=== PATIENT | female | born 1940 | race Caucasian/White ===

== ENCOUNTER 2019-07-26 22:52 | Emergency (ER) | payer MEDICARE, OTHER ==
[2019-07-26 23:17] LABS: ABSOLUTE EOSINOPHILS # (AUTO) 0.2 10^3/uL (0.0-0.6); ABSOLUTE MONOCYTES (AUTO) 0.7 10^3/uL (0.1-1.4); ABSOLUTE NEUT (AUTO) 4.9 10^3/uL (1.7-8.2); BASOPHILS % (AUTO) 0.4 % (0-2); EOSINOPHILS % (AUTO) 2.8 % (0-6); HEMATOCRIT 48.9 % (36.0-47.0); HEMOGLOBIN 17.1 g/dL (12.0-15.5); LYMPHOCYTES % (AUTO) 24.9 % (13-45); MEAN CORPUSCULAR HGB CONC 34.9 g/dL (32.0-36.0); MEAN CORPUSCULAR VOLUME 97 fl (80-97); MONOCYTES % (AUTO) 8.9 % (3-13); PLATELET COUNT 227 10^3/uL (150-450); RED BLOOD COUNT 5.02 10^6/uL (3.72-5.28); RED CELL DISTRIBUTION WIDTH 13.1 % (11.5-14.0); TOTAL CELLS COUNTED % (AUTO) 100 %; WHITE BLOOD COUNT 7.9 10^3/uL (4.0-10.5)
[2019-07-26 23:34] LABS: ALBUMIN 4.3 g/dL (3.5-5.0); ALKALINE PHOSPHATASE 87 U/L (38-126); ANION GAP 9 (5-19); ASPARTATE AMINO TRANSFERASE 33 U/L (14-36); BILIRUBIN,DIRECT 0.3 mg/dL (0.0-0.4); BILIRUBIN,TOTAL 0.5 mg/dL (0.2-1.3); BLOOD UREA NITROGEN 12 mg/dL (7-20); CALCIUM 9.6 mg/dL (8.4-10.2); CARBON DIOXIDE 29 mmol/L (22-30); CHLORIDE 97 mmol/L (98-107); CREATINE KINASE 48 U/L (30-135); GLUCOSE 104 mg/dL (75-110); POTASSIUM 4.4 mmol/L (3.6-5.0); TOTAL PROTEIN 7.9 g/dL (6.3-8.2)
[2019-07-26 23:44] LABS: CREATINE KINASE MB 3.04 ng/mL (<4.55)
--- NOTE | 2019-07-26 23:49 | RADIOLOGY REPORT (SQ) ---
EXAM DESCRIPTION: XR CHEST 2 VIEWS COMPLETED DATE/TME: 07/26/2019 00:00 CLINICAL HISTORY: 79 years, Female, CHEST PAIN COMPARISON: None. NUMBER OF VIEWS: Two TECHNIQUE: Frontal and lateral radiograph are obtained LIMITATIONS: None. FINDINGS: Cardiac and mediastinal contours are normal. Lungs are clear. No pleural effusion or pneumothorax. IMPRESSION: No acute disease. copyright 2010 [employer]- All Rights Reserved
[2019-07-27] LABS: TROPONIN I 0.093 ng/mL
--- NOTE | 2019-07-27 00:46 | ER Document Report ---
ED General - General Chief Complaint: Chest Pain > 30 Stated Complaint: CHEST PAIN Time Seen by Provider: 07/26/19 23:50 Primary Care Provider: JD MCDERMOTT PA-C [Primary Care Provider] - Follow up as needed TRAVEL OUTSIDE OF THE [place] IN LAST 30 DAYS: No - HPI Notes: 79-year-old female cigarette smoker with history of COPD but no known history of CAD or thromboembolic disease presents with a 2-day history of intermittent intrascapular pain. This is been associated with some increased shortness of breath. Coughing white sputum. No hemoptysis. No fever or chills. Patient is currently using steroid inhaler at home and is on no other medications. She has no known allergies. Positive family history for both CAD and thromboembolic disease. Patient is not diabetic or hypertensive. She has a history of hyperlipidemia. Patient says her last EKG was "years ago" and she was not aware of any abnormality on the tracing at that time. She is never had any cardiac disease that she is aware of. - Related Data Allergies/Adverse Reactions: No Known Allergies Allergy (Unverified 02/23/12 23:04) Home Medications: multivitamin. stiolto respimat. asa 81mg daily. citracal. glucosamine Past Medical History - General Information source: Patient, Relative - Social History Smoking Status: Current Every Day Smoker Chew tobacco use (# tins/day): No Frequency of alcohol use: Social Drug Abuse: None Lives with: Family Family History: CAD Patient has suicidal ideation: No Patient has homicidal ideation: No Pulmonary Medical History: Reports: Hx COPD - Immunizations Hx Diphtheria, Pertussis, Tetanus Vaccination: No Review of Systems - Review of Systems Notes: Constitutional: Negative for fever. HENT: Negative for sore throat. Eyes: Negative for visual changes. Cardiovascular: As per HPI. Respiratory: As per HPI. Gastrointestinal: Negative for abdominal pain, vomiting or diarrhea. Genitourinary: Negative for dysuria. Musculoskeletal: Negative for back pain. Skin: Negative for rash. Neurological: Negative for headaches, weakness or numbness. 10 point ROS negative except as marked above and in HPI. Physical Exam - Vital signs Vitals: Pulse Ox 93 07/26/19 23:49 - Notes Notes: GENERAL: Well-developed well-nourished appearing in no acute distress. SKIN: Good turgor no rashes. HEAD: Normocephalic atraumatic. EYES: PERRLA. EOMI. Conjunctivae and sclerae clear. EARS: CANALS AND TMS CLEAR. NOSE: CLEAR. MOUTH: Moist mucosa. Good dentition. No stridor or edema. No drooling. NECK: Supple. No masses or thyromegaly. No adenopathy. Carotids 2+ without bruits. No JVD. BACK: Symmetrical without tenderness. CHEST: Respirations unlabored. Breath sounds clear and symmetrical. HEART: Regular rhythm. No murmur gallop or rub. ABDOMEN: Soft nontender without masses, organomegaly or rebound. Bowel sounds normally active. No bruits. GENITALIA: Deferred. EXTREMITIES: No edema. No calf tenderness. Cap refill less than 1.5 seconds. Dorsalis pedis and posterior tibial pulses 3+ and symmetrical. NEUROLOGICAL: GCS 15. Alert and oriented x3. Normal gait. Fluent speech. Cranial nerves II through XII intact. Sensorimotor and cerebellar normal. Normal tone. PSYCHIATRIC: Appropriate affect. Course - Re-evaluation Re-evalutation: 07/27/19 00:47 Initial troponin is mildly elevated but not high enough to reach threshold for acute non-STEMI. We will repeat a 3-hour troponin level and EKG. Because of constellation of findings presented by the patient as well as abnormalities on EKG I think we are obligated to rule out PE I am going to request a CT angiogram of the chest. Because of pain in the back I would also have some concern about dissection and this will be addressed with the CT angiogram as well. 07/27/19 03:45 CTA showed no evidence of pulmonary embolus or dissection. Patient had 1 dose of fentanyl IV for pain relief and has remained pain-free. 07/27/19 03:46 Initial troponin was 0.093 and the 3-hour repeat troponin was positive at 0.238. Patient has received aspirin and will also receive Plavix and Lovenox. I am going to place some transdermal nitroglycerin. I talked to patient and her sister about need for heart catheterization after discussing the options of a would like to be [facility] Patient has been accepted for transfer by Dr. Xie. - Vital Signs Vital signs: Temp Pulse Resp BP Pulse Ox 15 99/60 L 91 L 07/27/19 02:01 07/27/19 02:01 07/27/19 02:01 - Laboratory Result Diagrams: 07/26/19 23:00 07/26/19 23:00 Laboratory results interpreted by me: 07/26/19 07/26/19 23:00 23:00 Hgb 17.1 H Hct 48.9 H MCH 34.0 H Sodium 134.9 L Chloride 97 L - EKG Interpretation by Me Additional EKG results interpreted by me: 07/27/19 00:47 Twelve-lead EKG from 2300 hrs. on 07/26/2019 is reviewed by me contemporaneously demonstrating presence of a right bundle branch block and a sinus tachycardia. No old EKG for comparison. No acute ST/T wave changes. Critical Care Note - Critical Care Note Total time excluding time spent on procedures (mins): 35 - Initial care for non- STEMI Discharge - Discharge Clinical Impression: Acute [id number] myocardial infarction Condition: Stable Disposition: [facility] Referrals: JD MCDERMOTT PA-C [Primary Care Provider] - Follow up as needed
[2019-07-27] MEDS ORDERED: FENTANYL CITRATE INJ/PF 100 MCG/2 ML AMPUL IV ONE (01:29)
[2019-07-27] MEDS ORDERED: ONDANSETRON HCL INJ/PF 4 MG/2 ML SDV IV ONE (01:30)
--- NOTE | 2019-07-27 01:30 | RADIOLOGY REPORT (SQ) ---
CT angiogram chest with contrast on 07/27/2019 at 12:49 AM CLINICAL INDICATION: Chest pain, shortness of breath TECHNIQUE: Multiple axial images are obtained throughout the chest following the administration of IV contrast. Computer generated 3D reconstructions/MIPS were performed. This exam was performed according to our departmental dose-optimization program, which includes automated exposure control, adjustment of the mA and/or kV according to patient size and/or use of iterative reconstruction technique. Total DLP is 784.88 mGy*cm. COMPARISON: None FINDINGS: Coronary artery calcifications and other vascular calcifications are noted. There is no thoracic aortic aneurysm or dissection. Lipomatous hypertrophy of the interatrial septum is noted. There is no pleural or pericardial effusion. There is diverticulosis of the upper abdomen. Limited visualized upper abdomen is otherwise unremarkable. There is no thoracic adenopathy. There are no filling defects within the pulmonary arteries to suggest pulmonary embolus. Emphysematous changes of the lungs are noted. There is some mild bronchial wall thickening suggesting mild bronchitis. There is some mild mucous plugging in the lower lobe bronchi. The lungs are otherwise clear. Degenerative changes are noted in the spine. IMPRESSION: 1. No evidence of pulmonary embolus. 2. Emphysema with findings suggesting mild bronchitis as well.
[2019-07-27] MEDS ORDERED: NITROGLYCERIN 2% OINTMENT 1 GM PACKET TP ONE (03:33)
[2019-07-27] MEDS ORDERED: ASPIRIN 81 MG TABLET, CHEWABLE PO ONE (03:33)
[2019-07-27] MEDS ORDERED: ENOXAPARIN SODIUM INJ 100 MG/1 ML DISP.SYRIN SUBCUT ONE (03:34)
[2019-07-27] MEDS ORDERED: CLOPIDOGREL BISULFATE 300 MG TABLET PO ONE (03:48)
[2019-07-27 05:22] VITALS: BP 121/82
--- NOTE | 2019-07-27 17:26 | EKG REPORT ---
SEVERITY:- ABNORMAL ECG - SINUS TACHYCARDIA PROBABLE LEFT ATRIAL ABNORMALITY RIGHT BUNDLE BRANCH BLOCK : Confirmed by: Susana Franklin MD 27-Jul-2019 17:25:53
--- NOTE | 2019-07-27 17:26 | EKG REPORT ---
SEVERITY:- ABNORMAL ECG - UNKNOWN RHYTHM, IRREGULAR RATE [id number] PROBABLE LEFT ATRIAL ABNORMALITY RIGHT BUNDLE BRANCH BLOCK : Confirmed by: Susana Franklin MD 27-Jul-2019 17:25:49
== END 2019-07-27 05:24 | disposition short-term general hospital (02) ==
LOC: ER 22:52
DX: I21.4 Non-ST elevation (NSTEMI) myocardial infarction (principal); R07.9 Chest pain, unspecified; F17.200 Nicotine dependence, unspecified, uncomplicated; J44.9 Chronic obstructive pulmonary disease, unspecified; E78.5 Hyperlipidemia, unspecified; Z79.82 Long term (current) use of aspirin
CPT/HCPCS: 93005 ×2; 99291; 96372; 96374; 96375; 36415; 82553; 82550; 85025; 80053; 84484; 71046; 71275; 93010 ×2; A9270 ×2; J3010; J2405; J1650; J3490